=== PATIENT | male | born 1940 | race Caucasian/White ===

== ENCOUNTER 2019-06-28 20:41 | Emergency (ER) | payer MEDICARE, BC | END 2019-06-28 21:12 | disposition home or self-care (01) | LOC: NAV ERS 20:41 | DX: M54.2 Cervicalgia (principal); I10 Essential (primary) hypertension; J45.909 Unspecified asthma, uncomplicated; Z87.891 Personal history of nicotine dependence; Z79.51 Long term (current) use of inhaled steroids; Z79.84 Long term (current) use of oral hypoglycemic drugs | CPT/HCPCS: 99283 ==